=== PATIENT | female | born 1940 | race Caucasian/White ===

== ENCOUNTER 2016-11-25 08:28 | Day surgery (SDC) | payer OTHER ==
[2016-11-24 12:36] VITALS: BMI 34.0
[2016-11-25] MEDS ORDERED: MIDAZOLAM HCL 2 MG/2 ML SINGLE DOSE VIAL ONE (11:20)
[2016-11-25] MEDS ORDERED: LIDOCAINE HCL/PF 2% SDV 5ML VIAL ONE (11:20)
[2016-11-25] MEDS ORDERED: PROPOFOL 20 ML ONE (11:20)
--- NOTE | 2016-11-25 11:43 | HP ---
History & Physical Update - History History: No Change - Physical Physical: No Change - Assessment Assessment: No Change - Plan Plan: No Change (Risks, Benefits, alternatives discussed with patient. Consent signed and witnessed)
[2016-11-25] MEDS ORDERED: ONDANSETRON 4 MG/2 ML VIAL IVPUSH PRN (12:21)
[2016-11-25] MEDS ORDERED: oxyCODONE HCL 5 MG TABLET PO PRN ×2 (12:21→13:30)
[2016-11-25] MEDS ORDERED: ACETAMINOPHEN 1000 MG/100 ML VIAL (NON FORMULARY) IVPB ONE (12:21)
[2016-11-25] MEDS ORDERED: LACTATED RINGERS SOLUTION 1,000 ML IV SCH (12:30)
--- NOTE | 2016-11-25 13:27 | OP ---
Operative Note - Note: Operative Date: 11/25/16 Pre-Operative Diagnosis: 76 yo P4 with postmenopausal bleeding, polyp on Sonogram, thick endometrium Operation: Hysteroscopy, Myomectomy, Polypectomy, Dialation and Curettage Findings: 1. Low Uterine segment 1cm fibroid and anterior Uterine wall fibroid, removed with resectoscope; 2. Anterior wall 2.5cm Corrina polyp resected with resectoscope Post-Operative Diagnosis: Same as Pre-op (and submucosal fibroids, obstructing lower uterine segment) Surgeon: Barb Oneill Anesthesiologist/CASH PERSON: Nury Arvizu Anesthesia: General Specimens Removed: 1. Cervical fibroid. 2. Endometrial polyp. 3. Endometrial curettings Estimated Blood Loss (mls): 5 Drains & Tubes with Location: Fluid deficit - 100cc Drains, Volume Out (mls): 100 Fluid Volume Replaced (mls): 500 Operative Report Dictated: Yes
[2016-11-25] MEDS ORDERED: IBUPROFEN 600 MG TABLET (FP) PO PRN (13:30)
[2016-11-25] MEDS ORDERED: IBUPROFEN 800 MG/8 ML IJ IVPB PRN (13:30)
[2016-11-25] MEDS ORDERED: ONDANSETRON 4 MG/2 ML VIAL IVPB PRN (13:30)
[2016-11-25] MEDS ORDERED: ELECTROLYTE-148 SOLN 1,000 ML IV SCH (13:30)
[2016-11-25 14:49] VITALS: TEMP 97.5
[2016-11-25 16:52] VITALS: BP 138/52; PULSE 84
--- NOTE | 2016-11-26 08:13 | OP ---
DATE OF OPERATION: 11/25/2016 PREOPERATIVE DIAGNOSIS: A 76-year-old para 4 with postmenopausal bleeding, polyp on the sonogram, and thickened endometrium. POSTOPERATIVE DIAGNOSIS: A 76-year-old para 4 with postmenopausal bleeding, polyp on the sonogram, thickened endometrium, and submucosal fibroids obstructing lower uterine segment. OPERATION: Hysteroscopy, myomectomy, polypectomy, dilation and curettage. FINDINGS: Both uterine segment 1-cm fibroids and anterior uterine wall fibroid removed with resectoscope, anterior wall 2.5-cm sessile polyp resected with resectoscope. SURGEON: Barb Oneill MD OFFSET PRESS OPERATOR APPRENTICE: Nury Arvizu CRNA ANESTHESIA: General. SPECIMENS REMOVED: 1. Cervical fibroids. 2. Endometrial polyps. 3. Endometrial curettings. DESCRIPTION OF THE OPERATIVE PROCEDURE: After assuring informed consent, patient was brought to the operating room where she was placed in dorsal lithotomy position. After assuring adequate level of anesthesia, perineum was prepped and draped in sterile fashion. After assembling 10-mm resectoscope, the cervix was articulated with single-tooth tenaculum and gradually dilated to accommodate 10-mm hysteroscope with Reece dilators up to the 21 gauge. The resectoscope was introduced initially through the cervical canal, and resistance was noted and that was noted to be 1-cm cervical lower uterine segment fibroid, which was resected with the Versapoint loop. Subsequently, that allowed for resectoscope to be advanced further into the uterus, where anterior fundus was found to have sessile 2.5-cm polyp and 1-cm fibroid, both of which were resected with the resectoscope loop. All intrauterine contents were removed with sharp curette, sharp curettage was performed, and endometrial curettings were collected. Subsequently, the resectoscope was introduced into the uterus once more, and uterus found to be intact. All intrauterine contents were surveyed, and uterus was found to be clear of polyp and fibroid. Bilateral ostia were visualized without difficulty. Subsequently, the resectoscope was removed from the uterus, and all other instruments were removed from the vagina. ESTIMATED BLOOD LOSS: 5 mL. FLUIDS: Patient received 500 mL of PlasmaLyte. URINE DRAINED: 100 mL. FLUID DEFICIT: 100 mL. COUNTS: Sponge and instrument counts were correct x2. CONDITION: Patient was brought to the recovery room in stable condition. [place]ba [id number]
--- NOTE | 2016-11-26 12:58 | PATH ---
Surgical Pathology Report Patient Name: CARMEN CONTRERAS [facility]. Rec. #: [id number] /Age/Gender: 1940 (Age: 76) / F Account: [id number] Location: [facility] SURGICAL Taken: 11/25/2016 Received: 11/25/2016 Reported: 11/26/2016 Physicians: Barb Oneill M.D. Specimen(s) Received A: ENDOMETRIAL POLYP B: ENDOMETRIAL CURETTINGS C: ENDOMETRIAL FIBROIDS Clinical History Postmenopausal bleeding Final Diagnosis A. ENDOMETRIUM, POLYPECTOMY: MULTIPLE PORTIONS OF BENIGN ENDOMETRIAL POLYP. NO CARCINOMA IDENTIFIED. B. ENDOMETRIUM, CURETTING: PORTIONS OF BENIGN ENDOMETRIAL POLYP, GLANDULAR EPITHELIUM SUGGESTIVE OF ATROPHIC ENDOMETRIUM, BENIGN ENDOCERVICAL TISSUE, AND BENIGN SQUAMOUS EPITHELIUM. NO CARCINOMA IDENTIFIED. C. ENDOMETRIUM, MYOMECTOMY: PORTION OF BENIGN MYOMETRIAL TISSUE WITH ENTRAPPED GLANDS SUGGESTIVE OF ADENOMYOSIS. Electronically Signed Ananth Cruz M.D. Gross Description A. Received in formalin labeled "endometrial polyp," is a 2.0 x 1.7 x 0.3 cm aggregate of killian soft tissue fragments admixed with mucus. The formalin is filtered and the specimen is entirely submitted in one cassette. B. Received in formalin labeled "endometrial curettings," is a 2.2 x 2.0 x 0.3 cm aggregate of killian soft tissue fragments admixed with blood-tinged mucous. The formalin is filtered and the specimen is entirely submitted in one cassette. C. Received in formalin labeled "endometrial fibroids," is a less than 1 g, 0.3 cm in greatest dimension killian soft tissue fragment. The specimen is submitted in toto in one cassette. 11/25/201611/25/2016
== END 2016-11-25 16:00 | disposition home or self-care (01) ==
LOC: JASU-SURG 08:28
PROVIDERS: ATTEND Obstetrics & Gynecology
PROC: 0UB98ZZ Excision of Uterus, Via Natural or Artificial Opening Endoscopic (ICD-10-PCS; 2016-11-25)
PROC: 0UB98ZX Excision of Uterus, Via Natural or Artificial Opening Endoscopic, Diagnostic (ICD-10-PCS; principal; 2016-11-25 10:00)
PROC: 0UDB8ZX Extraction of Endometrium, Via Natural or Artificial Opening Endoscopic, Diagnostic (ICD-10-PCS; 2016-11-25 10:00)
DX: N95.0 Postmenopausal bleeding (principal); D25.0 Submucous leiomyoma of uterus; R93.8 Abnormal findings on diagnostic imaging of other specified body structures
CPT/HCPCS: 88305-TC; 94760

== ENCOUNTER 2022-04-15 04:16 | Day surgery (SDC) | payer OTHER ==
[2022-04-10 17:16] VITALS: BMI 32.3
[2022-04-15] MEDS ORDERED: PROPOFOL 20 ML ONE ×2 (07:14→08:09)
[2022-04-15] MEDS ORDERED: IBUPROFEN 800 MG/8 ML IJ IVPB PRN (07:38)
[2022-04-15] MEDS ORDERED: ONDANSETRON 4 MG/2 ML VIAL IVPUSH PRN (07:38)
[2022-04-15] MEDS ORDERED: oxyCODONE HCL 5 MG TABLET PO PRN (07:38)
[2022-04-15] MEDS ORDERED: IBUPROFEN 600 MG TABLET (FP) PO PRN (07:38)
[2022-04-15] MEDS ORDERED: ELECTROLYTE-148 SOLN 1,000 ML IV SCH (07:45)
[2022-04-15] MEDS ORDERED: SUCCINYLCHOLINE CHLORIDE 200 MG/10 ML SYRINGE ONE (07:46)
[2022-04-15] MEDS ORDERED: DEXAMETHASONE SOD PHOSPHATE 4 MG/1 ML VIAL ONE (07:53)
[2022-04-15] MEDS ORDERED: ceFAZolin SODIUM 1 GM VIAL IVPB ONE (08:00)
[2022-04-15] MEDS ORDERED: LACTATED RINGERS SOLUTION 1,000 ML IV SCH (09:15)
[2022-04-15 12:28] VITALS: BP 150/60; PULSE 80; RESP 16; TEMP 97.8
== END 2022-04-15 12:20 | disposition home or self-care (01) ==
LOC: JASU-SURG 04:16
PROVIDERS: ATTEND Obstetrics & Gynecology
PROC: 0UDB7ZX Extraction of Endometrium, Via Natural or Artificial Opening, Diagnostic (ICD-10-PCS; 2022-04-15)
PROC: 0UB98ZX Excision of Uterus, Via Natural or Artificial Opening Endoscopic, Diagnostic (ICD-10-PCS; principal; 2022-04-15 07:30)
DX: N95.0 Postmenopausal bleeding (principal); N84.0 Polyp of corpus uteri
CPT/HCPCS: 87086; 87186; 88305-TC; 94760